=== PATIENT | female | born 2000 | race African-American/Black ===

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

== ENCOUNTER 2022-10-20 01:58 | Emergency (ER) | payer MEDICAID, OTHER ==
[~2022-10-20] VITALS: Ht 165.1 cm; Wt 98.2 kg
[2022-10-20 02:04] VITALS: O2SAT 100
[2022-10-20] MEDS ORDERED: DEXAMETHASONE 2MG TABLET PO NR (03:30)
[2022-10-20] MEDS ORDERED: DEXAMETHASONE 4MG TABLET PO ONE (03:30)
[2022-10-20] MEDS ORDERED: DEXAMETHASONE 10 MG/ML VIAL IV ONE (03:45)
[2022-10-20] MEDS ORDERED: IBUP-2029 MT (05:33)
[2022-10-20 05:39] VITALS: BP 135/83; PULSE 82; RESP 16; TEMP 98.6
== END 2022-10-20 05:41 | disposition home or self-care (01) ==
LOC: ER 02:45
DX: J02.9 Acute pharyngitis, unspecified (principal)
CPT/HCPCS: 81025; 87430; 87070; 96374; 99283; J1100; Z7610; J8540